=== PATIENT | male | born 1940 | race Caucasian/White ===

== ENCOUNTER 2023-07-21 14:55 | Outpatient (CLI) | payer MEDICARE ==
[~2023-07-21 14:55] MED LIST: Iopamidol 300 61% 100 ML VIAL FS ONE
== END 2023-07-21 14:56 | disposition home or self-care (01) ==
LOC: CSHCT 14:55
PROVIDERS: ATTEND Family Medicine
DX: R41.3 Other amnesia (principal)
CPT/HCPCS: 70470; 82565; Q9967

== ENCOUNTER 2024-10-08 15:02 | Outpatient (CLI) | payer MEDICARE | END 2024-10-08 15:03 | disposition home or self-care (01) | LOC: CSHRAD 15:02 | PROVIDERS: ATTEND Family Medicine | DX: M53.3 Sacrococcygeal disorders, not elsewhere classified (principal); M46.1 Sacroiliitis, not elsewhere classified | CPT/HCPCS: 72202 ==